=== PATIENT | female | born 1985 | race Caucasian/White ===

== ENCOUNTER → 2017-08-11 10:48 | Outpatient (CLI) | payer BC, MEDICAID, SELFPAY ==
[2017-08-11 12:30] LABS: Absolute Lymphocyte Count 0.95 X10^3/ul (0.83-4.51); Absolute Neutrophil Count 6.6 X10^3/uL (2.0-7.7); Basophil# 0.01 X10^3/uL; Basophil% 0.1 % (0-1); Eosinophil# 0.05 X10^3/uL; Eosinophils% 0.6 % (0-5); Hemoglobin 12.1 g/dl (12.0-15.0); Lymphocyte # 0.95 X10^3/ul (4.0); Lymphocyte % 11.9 % (19-41); Mean Corp Hgb Conc 32.7 g/gl (32-36); Mean Corpuscular Hgb 28.5 pg (27.0-32.0); Mean Corpuscular Volume 87.1 fL (81-99); Monocyte# 0.35 X10^3/uL; Monocyte% 4.4 % (0-10); Neutrophil # 6.58 X10^3/uL (2.7-7.7); Neutrophil % 82.9 % (47-70); Platelet Count 125 K/mm3 (150-450); RBC Distribution Width SD 40.4 fl (35.1-43.9); Red Blood Count 4.25 M/mm3 (4.2-5.4)
[2017-08-11 12:32] LABS: POSITIVE COUNT NO; POSITIVE DIFFERENTIAL NO; POSITIVE MORPHOLOGY NO
[2017-08-11 13:37] LABS: HIV - WCH Non-Reactive (Nonreactive); Rubella IgG 134.5 IU/mL
[2017-08-12 09:15] LABS: HEPATITIS B SURFACE AG Negative (Negative)
[2017-08-13 01:13] LABS: Rapid Plasmin Reagin (RPR) NONREACTIVE (NONREACTIVE)
== END ==
PROVIDERS: Visit Provider Obstetrics & Gynecology
DX: Z34.81 Encounter for supervision of other normal pregnancy, first trimester (principal); Z3A.00 Weeks of gestation of pregnancy not specified
CPT/HCPCS: 85025; 86592; 86703; 86762; 86850; 86900; 87340

== ENCOUNTER → 2017-09-08 08:53 | Outpatient (CLI) | payer BC, MEDICAID, SELFPAY ==
--- NOTE | 2017-09-08 08:53 | DT_ITS ---
This patient was seen during an EMR downtime September 06, 2017 - September 13, 2017. This patient may have a combination of paper and electronic documentation or all paper documentation. All documentation is viewable within the e-chart portion of [employer] for each patient visit.
[2017-09-13 10:42] LABS: Hematocrit 37.5 % (37-47); Hemoglobin 12.2 g/dl (12.0-15.0); Mean Corp Hgb Conc 32.5 g/gl (32-36); Mean Corpuscular Hgb 28.4 pg (27.0-32.0); Mean Corpuscular Volume 87.2 fL (81-99); Mean Platelet Vol. 11.9 fl (6.2-12.0); Platelet Count 126 K/mm3 (150-450); RBC Distribution Width CV 13.7 % (11.6-14.6); RBC Distribution Width SD 43.4 fl (35.1-43.9); Scan Indicated on CBC? Y/N NO; White Blood Count 7.8 K/mm3 (4.4-11.0)
== END ==
PROVIDERS: Family Provider Family Medicine; PCP Family Medicine; Visit Provider Nurse Practitioner Women's Health
DX: Z34.81 Encounter for supervision of other normal pregnancy, first trimester (principal)
CPT/HCPCS: 36415; 85027

== ENCOUNTER → 2017-09-22 15:19 | Outpatient (CLI) | payer BC, MEDICAID, SELFPAY ==
--- NOTE | 2017-09-22 15:21 | US_ITS ---
STUDY: SECOND AND THIRD TRIMESTER OBSTETRICAL ULTRASOUND REASON FOR EXAM: Female, 32 years old. Routine survey. LMP: 05/11/17 TECHNIQUE: Transabdominal PRIOR ULTRASOUND: None. FINDINGS: There is a single intrauterine fetus. The fetus is in a transverse lie with the head on the maternal right side. There is demonstrated cardiac activity with a heart rate of 140 bpm. There is a normal amniotic fluid volume. The largest amniotic fluid pocket measures 6.8 cm. The placenta is anterior in location and is not low lying. There are Grade 0 placental changes. The cervix measures 4.6 cm in length. The bilateral adnexal regions are normal. BIOMETRY: BPD: 4.3 cm: 19 weeks, 1 days HC: 16.09 cm: 19 weeks, 0 days AC: 14.31 cm: 19 weeks, 5 days FL: 2.99 cm: 19 weeks, 2 days age by current US: 19 weeks, 2 days. MATHEUS by current US: 02/14/2018. Estimated weight: 290 grams, +/- 42 grams, 61 %. Age by LMP: 19 weeks, 1 days. MATHEUS by LMP: 02/15/2018. ANATOMY: Gender: Indeterminant Cranium: Normal lateral ventricles. Normal choroid plexus. Normal cerebellum. Normal cisterna magna. Normal face, nose and lips. Chest: Normal 4-chamber heart. Abdomen/Pelvis: Normal diaphragm. Normal stomach. Normal abdominal wall. Normal cord insertion. Normal 3 vessel cord. Normal kidneys. Normal bladder. Spine: Normal cervical spine. Normal thoracic spine. Normal lumbar spine. Normal sacrum. Extremities: Normal bilateral upper extremities. Normal bilateral lower extremities. US/OB Anatomy Scan IMPRESSION: Single live intrauterine at 19 weeks, 2 days by ultrasound with MATHEUS of 02/14/2018. Heart rate of 140 bpm. No suspicious sonographic findings Electronically Signed: Gael Casillas MD at 9:51 EDT , Service support ,
== END ==
PROVIDERS: Family Provider Family Medicine; PCP Family Medicine; Visit Provider Obstetrics & Gynecology
DX: Z34.91 Encounter for supervision of normal pregnancy, unspecified, first trimester (principal)
CPT/HCPCS: 76805

== ENCOUNTER → 2017-10-05 16:18 | Outpatient (CLI) | payer BC, SELFPAY ==
--- NOTE | 2017-10-05 16:20 | VDLE_ITS ---
Reason For Study: swelling RIGHT LEFT GSV is normal. GSV is normal. CFV is compressible, spontaneous, phasic, CFV is compressible, spontaneous, phasic, competent and demonstrates normal competent, and demonstrates normal augmentation. augmentation. FV is compressible, spontaneous, phasic, FV is compressible, spontaneous, phasic, competent and demonstrates normal competent and demonstrates normal augmentation. augmentation. POP V is compressible, spontaneous, phasic, POP V is compressible, spontaneous, phasic, competent and demonstrates normal competent and demonstrates normal augmentation. augmentation. T/P Trunk is compressible. T/P Trunk is compressible. PTV is compressible. PTV is compressible. RT PerV is compressible. LT PerV is compressible. Procedure Exam performed in department. The exam was diagnostic. A preliminary report was called and/or faxed to Sammi Alcantar NP. Interpretation Summary No evidence for acute deep venous thrombosis bilateral lower extremities with patent and compressible bilateral great saphenous veins. Ordering Physician: Sammi Alcantar Performed By: Alber Hoffman RVT
[2017-10-05 17:26] LABS: Absolute Lymphocyte Count 0.98 X10^3/ul (0.83-4.51); Absolute Neutrophil Count 6.9 X10^3/uL (2.0-7.7); Basophil# 0.01 X10^3/uL; Basophil% 0.1 % (0-1); Eosinophil# 0.09 X10^3/uL; Eosinophils% 1.1 % (0-5); Hematocrit 34.6 % (37-47); Hemoglobin 11.1 g/dl (12.0-15.0); Lymphocyte # 0.98 X10^3/ul (4.0); Lymphocyte % 11.7 % (19-41); Mean Corp Hgb Conc 32.1 g/gl (32-36); Mean Corpuscular Hgb 28.2 pg (27.0-32.0); Mean Corpuscular Volume 87.8 fL (81-99); Monocyte# 0.37 X10^3/uL; Monocyte% 4.4 % (0-10); Neutrophil # 6.92 X10^3/uL (2.7-7.7); Neutrophil % 82.6 % (47-70); Platelet Count 144 K/mm3 (150-450); RBC Distribution Width CV 14.2 % (11.6-14.6); Red Blood Count 3.94 M/mm3 (4.2-5.4); White Blood Count 8.4 K/mm3 (4.4-11.0)
[2017-10-05 17:30] LABS: POSITIVE COUNT NO; POSITIVE DIFFERENTIAL NO; POSITIVE MORPHOLOGY NO
[2017-10-05 17:37] LABS: Anion Gap 6 (5-15); BUN 7 mg/dL (7-18); BUN/Creat Ratio 13.2 RATIO (10-20); Calcium,Total 8.3 mg/dL (8.5-10.1); Chloride 104 mmol/L (98-107); Creatinine, Serum 0.53 mg/dL (0.55-1.02); EST Glomerular Filtration Rate 143 mL/min (>60); Est Glom Filt Rate - Afr Amer 173 mL/min (>60); Glucose 90 mg/dL (74-106); Potassium 3.7 mmol/L (3.5-5.1); Sodium Level 140 mmol/L (136-145)
== END ==
PROVIDERS: Family Provider Family Medicine; PCP Family Medicine; Visit Provider Nurse Practitioner Women's Health
DX: O99.112 Other diseases of the blood and blood-forming organs and certain disorders involving the immune mechanism complicating pregnancy, second trimester (principal); D69.6 Thrombocytopenia, unspecified; O12.02 Gestational edema, second trimester; Z3A.00 Weeks of gestation of pregnancy not specified
CPT/HCPCS: 36415; 80048; 83880; 85025; 93970

== ENCOUNTER → 2017-11-23 10:31 | Outpatient (CLI) | payer BC, SELFPAY ==
[2017-11-23 11:42] LABS: Absolute Lymphocyte Count 0.48 X10^3/ul (0.83-4.51); Basophil# 0.01 X10^3/uL; Basophil% 0.1 % (0-1); Eosinophil# 0.03 X10^3/uL; Eosinophils% 0.4 % (0-5); Hematocrit 32.5 % (37-47); Hemoglobin 10.4 g/dl (12.0-15.0); Lymphocyte # 0.48 X10^3/ul (4.0); Mean Corpuscular Hgb 28.9 pg (27.0-32.0); Mean Corpuscular Volume 90.3 fL (81-99); Mean Platelet Vol. 12.2 fl (6.2-12.0); Monocyte# 0.38 X10^3/uL; Monocyte% 5.5 % (0-10); Neutrophil # 5.99 X10^3/uL (2.7-7.7); Neutrophil % 86.9 % (47-70); Platelet Count 119 K/mm3 (150-450); RBC Distribution Width CV 14.3 % (11.6-14.6); RBC Distribution Width SD 47.1 fl (35.1-43.9); White Blood Count 6.9 K/mm3 (4.4-11.0)
[2017-11-23 11:44] LABS: Differential Indicated SCAN CRITERIA MET; POSITIVE COUNT NO; POSITIVE DIFFERENTIAL YES; POSITIVE MORPHOLOGY NO
[2017-11-23 12:01] LABS: Glucose Challenge Gest 1H 50g 102 mg/dL (70-140)
[2017-11-23 12:12] LABS: Platelet Estimate SLT DEC (ADEQ); Platelet Morphology LARGE
== END ==
PROVIDERS: Family Provider Family Medicine; PCP Family Medicine; Visit Provider Obstetrics & Gynecology
DX: O09.899 Supervision of other high risk pregnancies, unspecified trimester (principal); Z67.91 Unspecified blood type, Rh negative; Z3A.00 Weeks of gestation of pregnancy not specified
CPT/HCPCS: 36415; 82950; 85025

== ENCOUNTER → 2017-12-21 10:28 | Outpatient (CLI) | payer BC, SELFPAY ==
[2017-12-21 12:39] LABS: Absolute Lymphocyte Count 0.99 X10^3/ul (0.83-4.51); Absolute Neutrophil Count 8.4 X10^3/uL (2.0-7.7); Basophil# 0.01 X10^3/uL; Basophil% 0.1 % (0-1); Eosinophil# 0.23 X10^3/uL; Eosinophils% 2.3 % (0-5); Hematocrit 33.2 % (37-47); Hemoglobin 10.7 g/dl (12.0-15.0); Lymphocyte # 0.99 X10^3/ul (4.0); Lymphocyte % 9.7 % (19-41); Mean Corp Hgb Conc 32.2 g/gl (32-36); Mean Corpuscular Hgb 29.3 pg (27.0-32.0); Monocyte# 0.47 X10^3/uL; Monocyte% 4.6 % (0-10); Neutrophil # 8.42 X10^3/uL (2.7-7.7); Neutrophil % 82.7 % (47-70); Platelet Count 136 K/mm3 (150-450); RBC Distribution Width CV 14.1 % (11.6-14.6); RBC Distribution Width SD 46.1 fl (35.1-43.9); Red Blood Count 3.65 M/mm3 (4.2-5.4); White Blood Count 10.2 K/mm3 (4.4-11.0)
[2017-12-21 12:40] LABS: POSITIVE COUNT NO; POSITIVE DIFFERENTIAL NO; POSITIVE MORPHOLOGY NO
== END ==
PROVIDERS: Family Provider Family Medicine; PCP Family Medicine; Visit Provider Nurse Practitioner Women's Health
DX: O99.119 Other diseases of the blood and blood-forming organs and certain disorders involving the immune mechanism complicating pregnancy, unspecified trimester (principal); D69.6 Thrombocytopenia, unspecified
CPT/HCPCS: 36415; 85025

== ENCOUNTER → 2018-01-19 10:28 | Outpatient (CLI) | payer BC, SELFPAY ==
[2018-01-19 15:05] LABS: Absolute Neutrophil Count 8.7 X10^3/uL (2.0-7.7); Basophil# 0.01 X10^3/uL; Basophil% 0.1 % (0-1); Eosinophil# 0.06 X10^3/uL; Eosinophils% 0.6 % (0-5); Hematocrit 34.2 % (37-47); Hemoglobin 10.9 g/dl (12.0-15.0); Lymphocyte % 9.8 % (19-41); Mean Corp Hgb Conc 31.9 g/gl (32-36); Mean Corpuscular Hgb 29.4 pg (27.0-32.0); Mean Corpuscular Volume 92.2 fL (81-99); Mean Platelet Vol. 12.7 fl (6.2-12.0); Monocyte# 0.44 X10^3/uL; Monocyte% 4.3 % (0-10); Neutrophil # 8.65 X10^3/uL (2.7-7.7); Neutrophil % 84.9 % (47-70); Platelet Count 124 K/mm3 (150-450); RBC Distribution Width CV 14.8 % (11.6-14.6); RBC Distribution Width SD 48.4 fl (35.1-43.9); Red Blood Count 3.71 M/mm3 (4.2-5.4); White Blood Count 10.2 K/mm3 (4.4-11.0)
[2018-01-19 15:54] LABS: POSITIVE COUNT NO; POSITIVE DIFFERENTIAL NO; POSITIVE MORPHOLOGY NO
[2018-01-19 16:19] LABS: Group B Strep DNA By PCR Negative (Negative); Internal Control PASS; Probe Check PASS; Specimen Processing Control PASS
[2018-01-19 20:57] LABS: Xtra Tube EP Lab EXTRA TUBE
== END ==
PROVIDERS: Family Provider Family Medicine; PCP Family Medicine; Referring Provider Obstetrics & Gynecology; Visit Provider Obstetrics & Gynecology
DX: O99.119 Other diseases of the blood and blood-forming organs and certain disorders involving the immune mechanism complicating pregnancy, unspecified trimester (principal); D69.6 Thrombocytopenia, unspecified; Z3A.00 Weeks of gestation of pregnancy not specified
CPT/HCPCS: 85025; 87081; 87653

== ENCOUNTER 2018-02-16 16:40 | Inpatient (IN) | payer BC, MEDICAID, SELFPAY ==
[2018-02-16 15:51] VITALS: BMI 33.2
[2018-02-16 17:41] LABS: Hemoglobin 11.6 g/dl (12.0-15.0); Mean Corp Hgb Conc 31.4 g/gl (32-36); Mean Corpuscular Hgb 28.5 pg (27.0-32.0); Mean Corpuscular Volume 90.9 fL (81-99); Mean Platelet Vol. 12.3 fl (6.2-12.0); Platelet Count 130 K/mm3 (150-450); RBC Distribution Width CV 14.6 % (11.6-14.6); RBC Distribution Width SD 48.4 fl (35.1-43.9); Red Blood Count 4.07 M/mm3 (4.2-5.4); White Blood Count 10.7 K/mm3 (4.4-11.0)
[2018-02-16] MEDS: Lactated Ringers 1,000 ML 50 ML IV (17:41)
[2018-02-16 17:52] LABS: Scan Indicated on CBC? Y/N NO
--- NOTE | 2018-02-16 19:05 | PCM.HP.OB ---
- Problem List (1) Active labor at term Status: Acute (2) Edema in Status: Acute Qualifiers: Comment: JAMEEL hose ordered (3) Gestational thrombocytopenia Status: Acute Qualifiers: Comment: 09/08/17 Platelets 126; 10/12/17 144; rpt 36 weeks (4) Rh negative status during Status: Acute Qualifiers: Comment: rhogam given 28 weeks and PRN (5) Supervision of normal in first trimester Status: Acute Qualifiers: Comment: PRR MATHEUS 02/15/18 INGA Pineda Vilma Jason [facility] History Date of Admission: 02/16/18 Final MATHEUS: 02/15/18 Final MATHEUS Source: LMP Gestational age: 40 Weeks and 1 Days History of this : This is a 32 year-old, at 40 weeks gestational age presents IAL. she has had a complicated by mild gestational thrombocytopenia. she is rh negative and did receive rhogam. she denies any vb lof and admits good fm with regular increasing contractions throughout yesterday and today Surgical History: Surgical History (Last Reviewed 02/15/18 @ 09:58 by Allegra Naranjo) H/O knee surgery Z98.890 History of tonsillectomy Z90.89 Allergies Sulfa (Sulfonamide Antibiotics) Allergy (Verified 02/16/18 16:35) Hives Home Medications: Home Medications compression stocking,knee high,long length,medium circ See Dose Instructions .ROUTE .MEDSUPPLY #1 ea 09/14/17 vitamin,calcium,dhlvtirg-cdny-zpsqq acid tablet 1 tab PO QDAY #90 tab 09/15/17 Smoking Status: Former smoker Alcohol: None Number of Fetus(es): 1 Heart Tracin-130 moderate variability reactive no decels cat I tracing TOCO Analysis: q3-6 History Past Pregnancies: Pregancy History 3 Elective abortions Hx Para 2 Spontaneous abortions Hx # Term Pregnancies Ectopic pregnancies Hx # Pregnancies Multiple births # of living children Past Pregnancies Del. Date Name GA/Weeks Outcome Route Bth Weight Infant Gen Labor Lgth Anesthesia Del Locatn Provider FOB 07/14/10 Patricia 39 live - full term vacuum [id number] Female 36 hours epidural [facility] Bare 11/11/13 Cinthya 39 live - full term 7lbs 11 ounces Female 12 hours epidural [facility] Vargas Delivery Date: 11/11/13 On 11/03/17 @ 10:53 Elvira Arredondoh No issues during or delivery. Delivery Date: 07/14/10 On 11/03/17 @ 10:52 Elvira Arredondoh No issues during . Labs: Mom's Labs & Results 02/16/18 02/16/18 02/16/18 17:10 17:10 17:40 WBC 10.7 RBC 4.07 L Hgb 11.6 L Hct 37.0 MCV 90.9 MCH 28.5 MCHC 31.4 L RDW 14.6 RDW Differential 48.4 H Plt Count 130 L MPV 12.3 H Chlam trachomat DNA PCR Pending N.gonorrhoeae DNA (PCR) Pending Blood Type A NEGATIVE Antibody Screen NEGATIVE Course Did the patient receive Yes care? Labs Blood Type: A RH: NEGATIVE RPR/VDRL/Syphilis Nonreactive Rubella status Immune HbSAg Negative Date Done: 08/11/17 Chlamydia Not Done Gonorrhea Not Done HIV/AIDS Non-Reactive Group B Strep: Negative Current Obstetrical History Gestational Diabetes No Incompetent Cervix No Infertility No IUGR No Macrosomia No Hypertension/Pre-eclampsia No Placenta Previa/Abruption No PTL/PROM No Oligohydramnios No Polyhydramnios No Multiple gestation No Past Medical History Asthma No Diabetes No Hypertension No Heart disease No Mitral valve prolapse No Neurologic/Seizure disorder/ No Migraines Kidney disease No Liver disease No Varicosities Yes: bilat. legs Clotting disorders/Hx of DVT No Thyroid Dysfunction No Other medical diseases No Psychiatric disorders No Major trauma No Abnormal PAP smear No Sleep apnea No Mammogram in the last 2 years No Social History Marital Status: Alleged father Jason Zendejas Hx Smoking No Smoking Status Former smoker Expected Delivery Method: Spontaneous Vaginal Describe any other labor & delivery plans:: OB Visit. MATHEUS Calculator. Estimated Delivery Date 02/15/18. Based on LMP (certain) 05/11/17. Current WG 40w 0d. Number 1. Expected Delivery Route/Plan. . Specific Issue/Plans. flu vaccine: given. minichart given: no. tdap vaccine: given. rhogam: given 28 weeks. LARC form signed: keith. labor support person: Jason. pain management: epidural. cut cord/dad catch: yes. : yes. PP control planned: vasectomy. special requests: [] Review of Systems Constitutional: Denies: Fever, Malaise Eyes: Denies: Blurred vision, Vision Change HEENT: Denies: Head Aches, Visual Changes Cardiovascular: Denies: Chest Pain, Palpitations Respiratory: Denies: Cough, Shortness of Breath, Wheezing Gastrointestinal: Denies: Abdominal Pain, Diarrhea, Nausea, Vomiting Genitourinary: Denies: Dysuria, Hematuria Musculoskeletal: Denies: Joint Pain, Muscle pain Skin: Denies: Lesions, Rash Neurological: Denies: Blurred vision, Focal weakness, Headaches Psychiatric: Denies: Anxiety, Depression Endocrine: Denies: Heat/ Cold Intolerance Hematologic/ Lymphatic: Denies: Easy Bruising, Easy Bleeding Physical Exam General: Alert, Cooperative, No apparent distress HEENT: Atraumatic, Normocephalic. Negative for: Thyromegaly, Lymphadenopathy Cardiovascular: Regular rate Lungs: Normal air movement Abdomen: Soft, Non Tender, Gravid Neurological: Deep Tendon Reflexes 2+/4 and Symmetrical, Neuro grossly intact. Negative for: Clonus STENOTYPE MACHINE OPERATOR: Normal external genitalia. Negative for: Vulvar lesions Estimated gestational size: Appropriate for gestational size Presentation: Cephalic Cervix Dilation (cm): 6 Station: 0 Effacement (%): 70 Assessment/Plan All Active Problems (Last Reviewed 02/15/18 @ 09:58 by Allegra Naranjo) Active labor at term (Acute) Edema in (Acute) Gestational thrombocytopenia (Acute) Rh negative status during (Acute) Supervision of normal in first trimester (Acute) This is a 32 year-old, at 40 weeks gestational age presents IAL Patient presents IAL, plan expectant management for , pitocin/AROM PRN if needed. Pain management: plans epidural if desired. GBS negative rh negative- rhogam if indicatexd. Management of any complications: check platelets I have reviewed the [facility] and made any clinically relevant updates.
--- NOTE | 2018-02-16 19:09 | HP.PCM_ITS ---
- Problem List (1) Active labor at term Status: Acute (2) Edema in Status: Acute Qualifiers: Comment: JAMEEL hose ordered (3) Gestational thrombocytopenia Status: Acute Qualifiers: Comment: 09/08/17 Platelets 126; 10/12/17 144; rpt 36 weeks (4) Rh negative status during Status: Acute Qualifiers: Comment: rhogam given 28 weeks and PRN (5) Supervision of normal in first trimester Status: Acute Qualifiers: Comment: PRR MATHEUS 02/15/18 INGA Pineda Vilma Jason [facility] History Date of Admission: 02/16/18 Final MATHEUS: 02/15/18 Final MATHEUS Source: LMP Gestational age: 40 Weeks and 1 Days History of this : This is a 32 year-old, at 40 weeks gestational age presents IAL. she has had a complicated by mild gestational thrombocytopenia. she is rh negative and did receive rhogam. she denies any vb lof and admits good fm with regular increasing contractions throughout yesterday and today Surgical History: Surgical History (Last Reviewed 02/15/18 @ 09:58 by Allegra Naranjo) H/O knee surgery Z98.890 History of tonsillectomy Z90.89 Allergies Sulfa (Sulfonamide Antibiotics) Allergy (Verified 02/16/18 16:35) Hives Home Medications: Home Medications compression stocking,knee high,long length,medium circ See Dose Instructions .ROUTE .MEDSUPPLY #1 ea 09/14/17 vitamin,calcium,vbedhgpg-vrlu-qzdvr acid tablet 1 tab PO QDAY #90 tab 09/15/17 Smoking Status: Former smoker Alcohol: None Number of Fetus(es): 1 Heart Tracin-130 moderate variability reactive no decels cat I tracing TOCO Analysis: q3-6 History Past Pregnancies: Pregancy History 3 Elective abortions Hx Para 2 Spontaneous abortions Hx # Term Pregnancies Ectopic pregnancies Hx # Pregnancies Multiple births # of living children Past Pregnancies Del. Date Name GA/Weeks Outcome Route Bth Weight Infant Gen Labor Lgth Anesthesia Del Locatn Provider FOB 07/14/10 Patricia 39 live - full term vacuum [id number] Female 36 hours epidural [facility] Bare 11/11/13 Cinthya 39 live - full term 7lbs 11 ounces Female 12 hours epidural [facility] Vargas Delivery Date: 11/11/13 On 11/03/17 @ 10:53 Elvira Arredondoh No issues during or delivery. Delivery Date: 07/14/10 On 11/03/17 @ 10:52 Elvira Arredondoh No issues during . Labs: Mom's Labs & Results 02/16/18 02/16/18 02/16/18 17:10 17:10 17:40 WBC 10.7 RBC 4.07 L Hgb 11.6 L Hct 37.0 MCV 90.9 MCH 28.5 MCHC 31.4 L RDW 14.6 RDW Differential 48.4 H Plt Count 130 L MPV 12.3 H Chlam trachomat DNA PCR Pending N.gonorrhoeae DNA (PCR) Pending Blood Type A NEGATIVE Antibody Screen NEGATIVE Course Did the patient receive Yes care? Labs Blood Type: A RH: NEGATIVE RPR/VDRL/Syphilis Nonreactive Rubella status Immune HbSAg Negative Date Done: 08/11/17 Chlamydia Not Done Gonorrhea Not Done HIV/AIDS Non-Reactive Group B Strep: Negative Current Obstetrical History Gestational Diabetes No Incompetent Cervix No Infertility No IUGR No Macrosomia No Hypertension/Pre-eclampsia No Placenta Previa/Abruption No PTL/PROM No Oligohydramnios No Polyhydramnios No Multiple gestation No Past Medical History Asthma No Diabetes No Hypertension No Heart disease No Mitral valve prolapse No Neurologic/Seizure disorder/ No Migraines Kidney disease No Liver disease No Varicosities Yes: bilat. legs Clotting disorders/Hx of DVT No Thyroid Dysfunction No Other medical diseases No Psychiatric disorders No Major trauma No Abnormal PAP smear No Sleep apnea No Mammogram in the last 2 years No Social History Marital Status: Alleged father Jason Zendejas Hx Smoking No Smoking Status Former smoker Expected Delivery Method: Spontaneous Vaginal Describe any other labor & delivery plans:: OB Visit. MATHEUS Calculator. Estimated Delivery Date 02/15/18. Based on LMP (certain) 05/11/17. Current WG 40w 0d. Number 1. Expected Delivery Route/Plan. . Specific Issue/Plans. flu vaccine: given. minichart given: no. tdap vaccine: given. rhogam: given 28 weeks. LARC form signed: keith. labor support person: Jason. pain management: epidural. cut cord/dad catch: yes. : yes. PP control planned: vasectomy. special requests: [] Review of Systems Constitutional: Denies: Fever, Malaise Eyes: Denies: Blurred vision, Vision Change HEENT: Denies: Head Aches, Visual Changes Cardiovascular: Denies: Chest Pain, Palpitations Respiratory: Denies: Cough, Shortness of Breath, Wheezing Gastrointestinal: Denies: Abdominal Pain, Diarrhea, Nausea, Vomiting Genitourinary: Denies: Dysuria, Hematuria Musculoskeletal: Denies: Joint Pain, Muscle pain Skin: Denies: Lesions, Rash Neurological: Denies: Blurred vision, Focal weakness, Headaches Psychiatric: Denies: Anxiety, Depression Endocrine: Denies: Heat/ Cold Intolerance Hematologic/ Lymphatic: Denies: Easy Bruising, Easy Bleeding Physical Exam General: Alert, Cooperative, No apparent distress HEENT: Atraumatic, Normocephalic. Negative for: Thyromegaly, Lymphadenopathy Cardiovascular: Regular rate Lungs: Normal air movement Abdomen: Soft, Non Tender, Gravid Neurological: Deep Tendon Reflexes 2+/4 and Symmetrical, Neuro grossly intact. Negative for: Clonus SPECIAL EFFECTS MAKEUP ARTIST: Normal external genitalia. Negative for: Vulvar lesions Estimated gestational size: Appropriate for gestational size Presentation: Cephalic Cervix Dilation (cm): 6 Station: 0 Effacement (%): 70 Assessment/Plan All Active Problems (Last Reviewed 02/15/18 @ 09:58 by Allegra Naranjo) Active labor at term (Acute) Edema in (Acute) Gestational thrombocytopenia (Acute) Rh negative status during (Acute) Supervision of normal in first trimester (Acute) This is a 32 year-old, at 40 weeks gestational age presents IAL Patient presents IAL, plan expectant management for , pitocin/AROM PRN if needed. Pain management: plans epidural if desired. GBS negative rh negative- rhogam if indicatexd. Management of any complications: check platelets I have reviewed the [facility] and made any clinically relevant updates.
[2018-02-16] MEDS: Oxytocin 30 units/NS 500 ml 30 UNITS/500 ML IV.SOLN 167 UNITS IV (19:55)
--- NOTE | 2018-02-16 20:01 | PCM.OB.VAG ---
- Problem List (1) Active labor at term Status: Acute (2) Edema in Status: Acute Qualifiers: Comment: JAMEEL hose ordered (3) Gestational thrombocytopenia Status: Acute Qualifiers: Comment: 09/08/17 Platelets 126; 10/12/17 144; rpt 36 weeks (4) Rh negative status during Status: Acute Qualifiers: Comment: rhogam given 28 weeks and PRN (5) Supervision of normal in first trimester Status: Acute Qualifiers: Comment: PRR MATHEUS 02/15/18 INGA PinedaRicVilma Jason [facility] Vaginal Delivery Maternal Presentation: Active Labor 32-year-old at 40 weeks 1 day presents in active labor Amniotic Membrane Rupture Type: Artificial Amniotic Fluid Description: Lightly stained meconium Final MATHEUS: 02/15/18 Gestational age: 40 Weeks and 1 Days Date of Procedure: 02/16/18 Pre-Operative Diagnosis: Active labor Post-Operative Diagnosis: same Surgery/ Procedure Performed: Spontaneous Vaginal Delivery Type of Anesthesia: None Description of Procedure: Patient began pushing on her hands and knees and delivered the head in the MADAI presentation. The head was delivered atraumatically . The anterior and posterior shoulders delivered without complication followed by the rest of the infant and the . Delayed cord clamping was employed for approximately 60 seconds. Cord was clamped and cut and gentle traction was applied to the cord and the placenta delivered spontaneously immediately following it was noted to be intact with three-vessel cord. The perineum and vagina were inspected and noted to have no significant laceration. EBL was 200 cc. Patient and infant tolerated delivery well. Presentation: MADAI Placental Delivery Description: Spontaneous Placenta Disposition: [facility]
[2018-02-16] MEDS: Oxytocin 30 units/NS 500 ml 30 UNITS/500 ML IV.SOLN 334 UNITS IV (20:25)
[2018-02-16] MEDS: Naproxen 250 MG Tablet PO (21:01)
[2018-02-16 21:25] LABS: Chlamydia Trachomatis by PCR Negative (Negative); Neisserai gonorrhoeae by PCR Negative (Negative); Probe Check PASS; Sample Adequacy Control PASS; Specimen Processing Control PASS
[2018-02-17] VITALS: BP 114/59; PULSE 80; RESP 14; TEMP 36.8
[2018-02-17 05:05] VITALS: BP 114/75; PULSE 74; RESP 16; TEMP 36.4
[2018-02-17] MEDS: Naproxen 250 MG Tablet PO ×2 (07:56→19:43)
--- NOTE | 2018-02-17 07:59 | PCM.PN.OB ---
Patient Problems: Active and Suspected Problems (Last Reviewed 02/15/18 @ 09:58 by Allegra Naranjo) Active labor at term (Acute) Subjective: No VB, LOF. Doing well. - Physical Exam General: Alert, Oriented x3 Abdomen: Soft, Non Tender, - - FF below U Vital Signs Temp Pulse Resp BP 97.5 F L 74 16 114/75 02/17/18 05:05 02/17/18 05:05 02/17/18 05:05 02/17/18 05:05 Oxygen Delivery Method Room Air Weight: 251 lb 15.814 oz Body Mass Index (BMI) 33.2 Intake and Output for Last 24 Hours 02/15/18 02/16/18 02/17/18 23:59 23:59 23:59 Output Total 600 / 600 Balance -600 / -600 Laboratory Tests Past 24 Hrs 02/16/18 02/16/18 02/16/18 17:10 17:10 17:40 WBC 10.7 RBC 4.07 L Hgb 11.6 L Hct 37.0 MCV 90.9 MCH 28.5 MCHC 31.4 L RDW 14.6 RDW Differential 48.4 H Plt Count 130 L MPV 12.3 H Chlam trachomat DNA PCR Negative N.gonorrhoeae DNA (PCR) Negative Blood Type A NEGATIVE Antibody Screen NEGATIVE Medical Necessity - Tobacco Use Smoking Status: Former smoker Assessment/Plan All Active Problems (Last Reviewed 02/15/18 @ 09:58 by Allegra Naranjo) Active labor at term (Acute) Edema in (Acute) Gestational thrombocytopenia (Acute) Rh negative status during (Acute) Supervision of normal in first trimester (Acute) PPD #1: Routine care. . Needs rhogam
[2018-02-17 08:00] VITALS: BP 114/68; PULSE 88; RESP 16; TEMP 36.6
[2018-02-17] MEDS: guaiFENesin 10 ML UDC (200MG/10ML) GT ×2 (12:18→19:43)
[2018-02-17] MEDS: Loratadine 10 MG Tablet PO (12:20)
[2018-02-17 12:49] VITALS: BP 116/62; PULSE 92; RESP 20; TEMP 37.1
[2018-02-17 16:00] VITALS: BP 110/69; PULSE 75; RESP 16; TEMP 36.4
[2018-02-17] MEDS: AMOXICILLIN 500 MG CAPSULE 1000 MG PO ×2 (16:29→22:01)
[2018-02-17 19:40] VITALS: BP 113/63; PULSE 80; RESP 17; TEMP 36.8
[2018-02-17] MEDS: Acetaminophen 500 MG Tablet 1000 MG PO (22:00)
[2018-02-18 01:50] VITALS: BP 107/74; PULSE 83; RESP 16; TEMP 36.3; O2SAT 98
[2018-02-18] MEDS: AMOXICILLIN 500 MG CAPSULE 1000 MG PO (06:14)
--- NOTE | 2018-02-18 07:41 | PCM.PN.OB ---
Patient Problems: Active and Suspected Problems (Last Reviewed 02/15/18 @ 09:58 by Allegra Naranjo) Active labor at term (Acute) Subjective: Still with some bilateral ear pain but feels better since drainage occurred. No fever. Nasal congestion and cough. Started amoxil yesterday and also taking decongestant, cool mist in room. Denies CP, SOB. Baby feeding well. Plans home today. - Physical Exam General: Alert, Oriented x3 Abdomen: Soft, Non Tender, - - FF below U Vital Signs Temp Pulse Resp BP Pulse Ox 97.3 F L 83 16 107/74 98 02/18/18 01:50 02/18/18 01:50 02/18/18 01:50 02/18/18 01:50 02/18/18 01:50 Oxygen Delivery Method Room Air Weight: 251 lb 15.814 oz Body Mass Index (BMI) 33.2 Intake and Output for Last 24 Hours 02/16/18 02/17/18 02/18/18 23:59 23:59 23:59 Output Total 600 / 600 Balance -600 / -600 Medical Necessity - Tobacco Use Smoking Status: Former smoker Assessment/Plan All Active Problems (Last Reviewed 02/15/18 @ 09:58 by Allegra Naranjo) Active labor at term (Acute) Edema in (Acute) Gestational thrombocytopenia (Acute) Rh negative status during (Acute) Supervision of normal in first trimester (Acute) PPD #2: Routine care. Rx Amoxil to finish 7 day treatment. OTC meds for discomfort. . Needs Rhogam. Home today
--- NOTE | 2018-02-18 07:53 | PCM.DCVAG ---
Additional Instructions: If you experience any of the following, contact your healthcare provider. Bleeding that soaks a pad every hour for 2 hours Fever 100.4 or higher Unrelieved incision or abdominal pain Swelling, redness, discharge or bleeding from your incision or episiotomy site Your incision begins to separate Problems urinating (including inability to urinate or burning while urinating). Visual changes Severe headache Flu-like symptoms Pain or redness in one of both of your breasts Pain, warmth, tenderness or swelling in your legs, especially the calf area Frequent nausea and vomiting Symptoms of depression or anxiety If you experience any of the following, call 911 or go to the nearest Emergency Room. Chest pain Problems breathing Seizure activity Partial or complete paralysis of a body part, slurred speech, weakness or drooping of the face, or a sudden inability to walk or hold your balance Allergies/Adverse Reactions: Allergies Sulfa (Sulfonamide Antibiotics) Allergy (Verified 02/16/18 16:35) Hives Medications to take at Discharge compression stocking,knee high,long length,medium circ See Dose Instructions .ROUTE .MEDSUPPLY #1 ea 09/14/17 vitamin,calcium,ucuqvtbo-jwvv-qnvcv acid tablet 1 tab PO QDAY #90 tab 09/15/17 Amoxicillin [Amoxil] 1,000 mg PO Q8H 6 Days capsule 02/18/18 The following prescriptions were given: Amoxicillin [Amoxil] 1,000 mg PO Q8H 6 Days capsule Primary Care Physician: Jac Crawford MD [Primary Care Provider] - Test Results: Test results from this visit will be discussed in further detail at your follow-up appointment, if applicable.
--- NOTE | 2018-02-18 07:54 | DCINST_ITS ---
Additional Instructions: If you experience any of the following, contact your healthcare provider. * Bleeding that soaks a pad every hour for 2 hours * Fever 100.4 or higher * Unrelieved incision or abdominal pain * Swelling, redness, discharge or bleeding from your incision or episiotomy site * Your incision begins to separate * Problems urinating (including inability to urinate or burning while urinating). * Visual changes * Severe headache * Flu-like symptoms * Pain or redness in one of both of your breasts * Pain, warmth, tenderness or swelling in your legs, especially the calf area * Frequent nausea and vomiting * Symptoms of depression or anxiety If you experience any of the following, call 911 or go to the nearest Emergency Room. * Chest pain * Problems breathing * Seizure activity * Partial or complete paralysis of a body part, slurred speech, weakness or drooping of the face, or a sudden inability to walk or hold your balance Allergies/Adverse Reactions: Allergies Sulfa (Sulfonamide Antibiotics) Allergy (Verified 02/16/18 16:35) Hives Medications to take at Discharge compression stocking,knee high,long length,medium circ See Dose Instructions .ROUTE .MEDSUPPLY #1 ea 09/14/17 vitamin,calcium,yqjpvnhj-gqth-mqvvg acid tablet 1 tab PO QDAY #90 tab 09/15/17 Amoxicillin [Amoxil] 1,000 mg PO Q8H 6 Days capsule 02/18/18 The following prescriptions were given: Amoxicillin [Amoxil] 1,000 mg PO Q8H 6 Days capsule Primary Care Physician: Jac Crawford MD [Primary Care Provider] - Test Results: Test results from this visit will be discussed in further detail at your follow- up appointment, if applicable.
[2018-02-18 08:12] VITALS: BP 102/57; PULSE 71; RESP 18; TEMP 36.3; O2SAT 96
[2018-02-18] MEDS: Acetaminophen 500 MG Tablet 1000 MG PO (08:20)
== END 2018-02-18 12:35 | disposition home or self-care (01) | DRG 807 ==
LOC: WPOUT 16:46
PROVIDERS: Admitting Provider Obstetrics & Gynecology; Family Provider Family Medicine; PCP Family Medicine; Referring Provider Obstetrics & Gynecology; Visit Provider Obstetrics & Gynecology
DX: O99.12 Other diseases of the blood and blood-forming organs and certain disorders involving the immune mechanism complicating childbirth (principal); D69.59 Other secondary thrombocytopenia; O12.04 Gestational edema, complicating childbirth; O77.0 Labor and delivery complicated by meconium in amniotic fluid; Z67.91 Unspecified blood type, Rh negative; Z87.891 Personal history of nicotine dependence; Z3A.40 40 weeks gestation of pregnancy; Z37.0 Single live birth
CPT/HCPCS: 59050; 85027; 86850; 86900; 87491; 87591; 99218; J7120; G0378

== ENCOUNTER 2018-02-21 13:20 | Outpatient (CLI) | payer MEDICAID, BC, SELFPAY | END 2018-02-21 14:00 | disposition home or self-care (01) | LOC: WPOUT 13:21 → WP 13:22 | PROVIDERS: Family Provider Family Medicine; PCP Family Medicine; Referring Provider Obstetrics & Gynecology; Visit Provider Obstetrics & Gynecology | DX: Z39.1 Encounter for care and examination of lactating mother (principal) | CPT/HCPCS: 96152 ==

== ENCOUNTER → 2020-01-18 | Outpatient (CLI) | payer BC, SELFPAY ==
[2020-01-18 11:11] VITALS: BMI 29.2
[2020-01-22 18:07] LABS: HPV APTIMA, High Risk Negative (Negative)
== END | disposition home or self-care (01) ==
LOC: LABSPEC 12:09
PROVIDERS: PCP Family Medicine; Visit Provider Nurse Practitioner Women's Health
DX: Z12.4 Encounter for screening for malignant neoplasm of cervix (principal)
CPT/HCPCS: 87624; 88175; G0145

== ENCOUNTER → 2021-01-27 08:56 | Outpatient (CLI) | payer BC, MEDICAID, SELFPAY ==
[2021-01-27 10:02] LABS: Cholesterol 143 mg/dL (200); Glucose 95 mg/dL (74-106); High Density Lipoprotein 39 mg/dL; Thyroid Stim Hormone (TSH) 1.01 uIU/mL (0.358-3.74); Triglycerides 97 mg/dL; Very Low Density Lipoprotein 19 mg/dL (5-40)
[2021-01-27 10:17] LABS: Vitamin D,25 Hydroxy 31.6 ng/mL
== END ==
PROVIDERS: PCP Family Medicine; Referring Provider Nurse Practitioner Women's Health; Visit Provider Nurse Practitioner Women's Health
DX: Z13.1 Encounter for screening for diabetes mellitus (principal); Z13.220 Encounter for screening for lipoid disorders; Z13.29 Encounter for screening for other suspected endocrine disorder; Z13.21 Encounter for screening for nutritional disorder
CPT/HCPCS: 36415; 80061; 82306; 82947; 84443

== ENCOUNTER → 2022-01-21 | Outpatient (CLI) | payer BC, MEDICAID, SELFPAY ==
[2022-01-23 08:09] LABS: Chlamydia By Nucleic Acid AMP Negative (Negative)
[2022-01-25 15:55] LABS: Gonococcus By Nucleic Acid AMP Negative (Negative)
== END | disposition home or self-care (01) ==
LOC: LABSPEC 01-22 07:36
PROVIDERS: PCP Family Medicine; Visit Provider Nurse Practitioner Women's Health
DX: N89.8 Other specified noninflammatory disorders of vagina (principal)
CPT/HCPCS: 87491; 87591

== ENCOUNTER → 2022-02-17 | Outpatient (CLI) | payer BC, MEDICAID, SELFPAY | END | disposition home or self-care (01) | PROVIDERS: PCP Family Medicine; Visit Provider Nurse Practitioner Women's Health | DX: N89.8 Other specified noninflammatory disorders of vagina (principal) | CPT/HCPCS: 87070; 87205 ==

== ENCOUNTER → 2024-04-24 | Outpatient (CLI) | payer BC, SELFPAY ==
[2024-04-27 22:07] LABS: HPV APTIMA, High Risk Negative (Negative)
== END | disposition home or self-care (01) ==
PROVIDERS: PCP Family Medicine; Referring Provider Nurse Practitioner Women's Health; Visit Provider Nurse Practitioner Women's Health
DX: Z12.4 Encounter for screening for malignant neoplasm of cervix (principal)
CPT/HCPCS: 87624; 88175; G0145